=== PATIENT | male | born 1955 | race Caucasian/White ===

== ENCOUNTER 2018-05-02 21:18 | Emergency (ER) | payer MEDICAID ==
[2018-05-02 21:56] LABS: BASO # 0.1 K/uL (0.0-0.2); BASO % 1.5 % (0.0-2.0); EOS # 0.2 K/uL (0.0-0.7); EOS % 2.8 % (0.0-4.0); HEMOGLOBIN 14.5 g/dL (12.0-18.0); LYMPH # 1.8 K/uL (1.0-4.3); LYMPH % 26.2 % (20.0-40.0); MEAN CELL VOLUME 97.6 fl (80.0-94.0); MEAN CORPUSCULAR HEMOGLOBIN 33.8 pg (27.0-31.0); MEAN CORPUSCULAR HGB CONC 34.7 g/dL (33.0-37.0); MEAN PLATELET VOLUME 8.3 fl (7.2-11.7); MONO # 0.4 K/uL (0.0-0.8); MONO % 6.5 % (0.0-10.0); NEUT # 4.3 K/uL (1.8-7.0); RBC 4.28 Mil/uL (4.40-5.90); RED CELL DISTRIBUTION WIDTH 12.8 % (11.5-14.5); WHITE BLOOD COUNT 6.9 K/uL (4.8-10.8)
--- NOTE | 2018-05-02 21:57 | ED PDOC ---
HPI: Trauma/Fall - HPI Time Seen by Provider: 05/02/18 21:32 Chief Complaint (Nursing): Weakness/Neurological Deficit Chief Complaint (Provider): Weakness/Neurological Deficit History Per: Patient History/Exam Limitations: no limitations Onset/Duration Of Symptoms: Hrs Additional Complaint(s): 62 y/o male with a PMHx of chronic leg weakness secondary to a herniated disk in his lumbar spine, HTN, BPH and TIA brought to the ED for evaluation of fall. Patient states he was walking on the sidewalk when he tripped and fell. Patient reports this is not unusual secondary to weakness. Patient additionally reports of chronic generalized weakness as well as a left facial droop. Patient states he was recently evaluated at [facility] where a CT and lab work was performed. In addition, Patient states he has been homeless since April 10. Denies loss of consciousness and new weakness. PMD: Non [facility] Provider (Dr. Suraj Calvin in [place], [place]) - Fall Fall:Prior To Injury: Tripped Past Medical History Reviewed: Historical Data, Nursing Documentation, Vital Signs Vital Signs: Last Vital Signs Temp 98.3 F 05/02/18 21:18 Pulse 76 05/02/18 21:18 Resp 17 05/02/18 21:18 BP 162/117 H 05/02/18 21:18 Pulse Ox 100 05/02/18 21:18 - Medical History PMH: Benign Prostatic Hyperplasia, HTN, TIA, Chronic Pain (Leg swelling secondary to herniated disk in his lumbar spine) - Surgical History Surgical History: No Surg Hx - Family History Family History: States: Hypertension - Social History Current smoker - smoking cessation education provided: No Drugs: Denies - Allergies Allergies/Adverse Reactions: Allergies Allergy/AdvReac Type Severity Reaction Status Date / Time No Known Allergies Allergy Verified 05/02/18 21:34 Review of Systems ROS Statement: Except As Marked, All Systems Reviewed And Found Negative (as per HPI) Constitutional: Positive for: Weakness, Other (Fall) Neurological: Negative for: Other (loss of consciousness) Physical Exam - Reviewed Nursing Documentation Reviewed: Yes Vital Signs Reviewed: Yes - Physical Exam Appears: Positive for: No Acute Distress (but tired and slightly malodorous) Head Exam: Positive for: ATRAUMATIC, NORMOCEPHALIC Skin: Positive for: Warm, Dry Eye Exam: Positive for: EOMI, PERRL ENT: Positive for: Normal ENT Inspection, Pharynx Is (clear), Other (Dry Mucous Membranes) Neck: Positive for: Painless ROM, Supple Cardiovascular/Chest: Positive for: Regular Rate, Rhythm. Negative for: Murmur Respiratory: Positive for: Normal Breath Sounds. Negative for: Respiratory Distress Gastrointestinal/Abdominal: Positive for: Soft. Negative for: Tenderness Back: Positive for: Decreased ROM Extremity: Positive for: Other (4/5 strength in hip flexors bilaterally. 5/5 plantar and dorsal flexion bilaterally). Negative for: Pedal Edema Lymphatic: Negative for: Adenopathy Neurologic/Psych: Positive for: Alert, Oriented (x3), Facial Droop (left sided) , Other (slightly slurred speech) - Laboratory Results Result Diagrams: 05/02/18 21:49 05/02/18 22:51 - ECG O2 Sat by Pulse Oximetry: 100 (RA) Pulse Ox Interpretation: Normal Medical Decision Making Medical Decision Making: Time: 2148 Impression: Fall and Generalized Weakness Plan: -- Type and Screen -- CT Head w/o Contrast -- EKG -- Alcohol Serum -- Ammonia -- CMP -- Lact Acid, Plasma -- Magnesium -- Phosphorus -- Thyroid Stimulating Hormone -- ED Urine Dipstick -- CBC with differentials -- PTT -- Prothrombin Time -- Glucose, POC -- Tar Heater Operator -- IV Insertion Time: [address] RESULTS FINDINGS: There is moderate brain parenchymal atrophy. There is no midline shift or mass effect. There is no evidence of an acute ischemic stroke. There is no acute intracranial hemorrhage. There is slight calcification of the arteries. The skull shows no evidence of injury or other acute pathologic processes. There is slight mucosal thickening in the paranasal sinuses. IMPRESSION: There is no acute intracranial abnormality. Thank you for allowing us to participate in the care of your patient. Dictated and Authenticated by: Marcell Fields MD 05/02/2018 10:30 PM Eastern Time ([place] & [place]) Labs stable c/w previous BP normalized while in ER DW pt findings. Pt stable for discharge and emphasized need for followup. Scribe Attestation: Documented by Dwaine Ledesma acting as a scribe for Dr. Kiya Aggarwal. Provider Scribe Attestation: All medical record entries made by the Scribe were at my direction and personally dictated by me. I have reviewed the chart and agree that the record accurately reflects my personal performance of the history, physical exam, medical decision making, and the department course for this patient. I have also personally directed, reviewed, and agree with the discharge instructions and disposition. Disposition - Clinical Impression Clinical Impression: Generalized muscle weakness, Fall Counseled Patient/Family Regarding: Studies Performed, Diagnosis, Need For Followup - Disposition Referrals: [facility] [Outside] Disposition Time: 23:45 Condition: STABLE Additional Instructions: TAKE YOUR REGULAR MEDICATIONS PRESCRIBED. FOLLOW UP AT CLINIC SOON POSSIBLE. Instructions: Preventing Falls, Generalized Weakness (DC) Forms: [employer] ([place])
[2018-05-02 22:01] LABS: PROTHROMBIN TIME 11.2 Seconds (9.8-13.1)
[2018-05-02 22:04] LABS: PARTIAL THROMBOPLASTIN TIME 31.5 Seconds (25.6-37.1)
[2018-05-02 23:25] LABS: CALCIUM 9.7 mg/dL (8.4-10.2); GFR NON-AFRICAN AMERICAN > 60
[2018-05-02 23:35] LABS: ALB/GLOB RATIO 1.5 (1.0-2.1); ALBUMIN 4.6 g/dL (3.5-5.0); ALT/SGPT 72 U/L (21-72); AST/SGOT 85 U/L (17-59); BLOOD UREA NITROGEN 14 mg/dl (9-20)
[2018-05-03 01:46] VITALS: BP 153/77; PULSE 89; RESP 20; TEMP 98.2
--- NOTE | 2018-05-03 08:23 | CARD ---
APPROVED REPORT Date of service: 05/02/2018 EKG Measurement Heart [id number] <Conclusion> Normal sinus rhythm Moderate voltage criteria for LVH, may be normal variant Borderline ECG
--- NOTE | 2018-05-03 08:28 | CT ---
Date of service: 05/02/2018 PROCEDURE: CT HEAD WITHOUT CONTRAST. HISTORY: fall COMPARISON: None available. TECHNIQUE: Axial computed tomography images were obtained through the head/brain without intravenous contrast. Radiation dose: Total exam DLP = 865.24 mGy-cm. This CT exam was performed using one or more of the following dose reduction techniques: Automated exposure control, adjustment of the mA and/or kV according to patient size, and/or use of iterative reconstruction technique. FINDINGS: HEMORRHAGE: No intracranial hemorrhage. BRAIN: No mass effect or edema. No atrophy or chronic microvascular ischemic changes. VENTRICLES: Unremarkable. No hydrocephalus. CALVARIUM: Unremarkable. PARANASAL SINUSES: Unremarkable as visualized. No significant inflammatory changes. MASTOID AIR CELLS: Unremarkable as visualized. No inflammatory changes. OTHER FINDINGS: None. IMPRESSION: Normal CT of the Head. No acute intracranial hemorrhage. The preliminary findings for this examination were reported by [facility] at 10:30 p.m. on 05/02/2018. There is concurrence of this report with the preliminary findings.
[2018-05-03 22:49] VITALS: O2SAT 100
== END 2018-05-03 02:18 | disposition home or self-care (01) ==
LOC: H.ER 21:18
DX: M62.81 Muscle weakness (generalized) (principal); W01.0XXA Fall on same level from slipping, tripping and stumbling without subsequent striking against object, initial encounter; Y92.480 Sidewalk as the place of occurrence of the external cause; G89.29 Other chronic pain; I10 Essential (primary) hypertension; R29.810 Facial weakness; Z86.73 Personal history of transient ischemic attack (TIA), and cerebral infarction without residual deficits
CPT/HCPCS: 70450; 80053; 80320; 82140; 82948; 83605; 83735; 84100; 84443; 85025; 85610; 85730; 86850; 86900; 93005; 96374; 99284; J1885

== ENCOUNTER 2018-05-19 21:53 | Emergency (ER) | payer MEDICAID ==
[2018-05-19 22:00] VITALS: PULSE 68; TEMP 98.1; O2SAT 98
--- NOTE | 2018-05-19 22:16 | ED PDOC ---
Lower Extremity Pain/Injury Time Seen by Provider: 05/19/18 22:14 Chief Complaint (Nursing): Lower Extremity Problem/Injury Chief Complaint (Provider): WEAKNESS History Per: Patient (62 Y/O MALE HOMELESS BROUGHT TO ED FOR LEGS GIVING OUT FROM UNDER HIM. PATIENT STATES HOMELESS FCI WAS FULL AND HE WAS TRYING TO GET OUT OF RAIN WHEN HE FELT LEGS GIVE OUT FROM UNDER HIM. STATES THIS HAPPENS FREQUENTLY BUT UNSURE WHY. DID NOT HIT HEAD. NOTES RIGHT SIDED PAIN ALONG BODY. WAS SEEN [address]/EKG/LABWORK EVALUATION FOR COMPLAINT. PLANS TO F/U WITH HIS PMD FOR EVALUATION.) Past Medical History Reviewed: Historical Data, Nursing Documentation, Vital Signs Vital Signs: Last Vital Signs Temp 98.1 F 05/19/18 21:56 Pulse 68 05/19/18 21:56 Resp 18 05/19/18 21:56 BP 100/61 05/19/18 21:56 Pulse Ox 98 05/19/18 21:56 - Medical History PMH: Benign Prostatic Hyperplasia, HTN, TIA, Chronic Pain (Leg swelling secondary to herniated disk in his lumbar spine) - Family History Family History: States: Hypertension - Allergies Allergies/Adverse Reactions: Allergies Allergy/AdvReac Type Severity Reaction Status Date / Time No Known Allergies Allergy Verified 05/17/18 22:26 Review of Systems ROS Statement: Except As Marked, All Systems Reviewed And Found Negative Physical Exam - Reviewed Nursing Documentation Reviewed: Yes Vital Signs Reviewed: Yes - Physical Exam Appears: Positive for: Well, Non-toxic, No Acute Distress Head Exam: Positive for: ATRAUMATIC, NORMAL INSPECTION, NORMOCEPHALIC Skin: Positive for: Normal Color, Warm, DRY Eye Exam: Positive for: EOMI, Normal appearance, PERRL ENT: Positive for: Normal ENT Inspection Neck: Positive for: Normal, Painless ROM Cardiovascular/Chest: Positive for: Regular Rate, Rhythm Respiratory: Positive for: CNT, Normal Breath Sounds Gastrointestinal/Abdominal: Positive for: Normal Exam, Soft Back: Positive for: Normal Inspection Extremity: Positive for: Normal ROM Neurologic/Psych: Positive for: Alert, Oriented, Other (5/5 STRENGTH UPPER AND LOWER.) - ECG O2 Sat by Pulse Oximetry: 98 - Progress ED Course And Treament: ACCUCHECK 120 PATIENT GIVEN MEAL IN ED. NOTED COMFORTABLE IN ED, WATCHING TV AND SINGING ALONG TO COMMERCIALS Disposition - Clinical Impression Clinical Impression: Falls - Patient ED Disposition Is Patient to be Admitted: No - Disposition Disposition: Routine/Home Disposition Time: 22:47 Condition: FAIR Instructions: Preventing Falls
[2018-05-19 22:55] VITALS: BP 105/63; RESP 16
== END 2018-05-19 23:08 | disposition home or self-care (01) ==
LOC: H.ER 21:53
DX: Z91.81 History of falling (principal); G89.29 Other chronic pain; I10 Essential (primary) hypertension; Z86.73 Personal history of transient ischemic attack (TIA), and cerebral infarction without residual deficits

== ENCOUNTER 2018-05-21 06:02 | Emergency (ER) | payer MEDICAID ==
[2018-05-21 06:19] VITALS: BMI 20.4
[2018-05-21 06:22] VITALS: TEMP 98.8
--- NOTE | 2018-05-21 06:54 | ED PDOC ---
HPI: General Adult Time Seen by Provider: 05/21/18 06:35 Chief Complaint (Nursing): Medical Clearance Chief Complaint (Provider): Homelessness History Per: Patient History/Exam Limitations: no limitations Additional Complaint(s): 62 year old male presents to the ED with no medical complaints. Patient reports he doesn't like his nursing home and considers just a place to spend time. He is looking for another nursing home and has no psych or medical complaints. PMD: none provided Past Medical History Reviewed: Historical Data, Nursing Documentation, Vital Signs Vital Signs: Last Vital Signs Temp 98.8 F 05/21/18 06:19 Pulse 73 05/21/18 10:12 Resp 18 05/21/18 10:12 BP 109/66 05/21/18 10:12 Pulse Ox 98 05/25/18 15:23 - Medical History PMH: Back Problems, Benign Prostatic Hyperplasia, HTN, TIA, Chronic Pain (Leg swelling secondary to herniated disk in his lumbar spine) - Surgical History Surgical History: Back Surgery - Family History Family History: States: Hypertension - Allergies Allergies/Adverse Reactions: Allergies Allergy/AdvReac Type Severity Reaction Status Date / Time No Known Allergies Allergy Verified 05/24/18 22:31 Review of Systems ROS Statement: Except As Marked, All Systems Reviewed And Found Negative Physical Exam - Reviewed Nursing Documentation Reviewed: Yes Vital Signs Reviewed: Yes - Physical Exam Appears: Positive for: Non-toxic, No Acute Distress Head Exam: Positive for: ATRAUMATIC, NORMOCEPHALIC Skin: Positive for: Normal Color, Warm, Dry Eye Exam: Positive for: Normal appearance Neck: Positive for: Normal, Painless ROM Cardiovascular/Chest: Positive for: Regular Rate, Rhythm. Negative for: Murmur Respiratory: Positive for: Normal Breath Sounds. Negative for: Wheezing, Respiratory Distress Extremity: Positive for: Normal ROM Neurologic/Psych: Positive for: Alert, Oriented. Negative for: Motor/Sensory Deficits - ECG O2 Sat by Pulse Oximetry: 98 (RA) Pulse Ox Interpretation: Normal Medical Decision Making Medical Decision Making: Initial Impression: Homelessness Initial Plan: Patient will be referred to nursing home. Scribe Attestation: Documented by Todd Morfin acting as a scribe for Poncho Garcia MD. Provider Scribe Attestation: All medical record entries made by the Scribe were at my direction and personally dictated by me. I have reviewed the chart and agree that the record accurately reflects my personal performance of the history, physical exam, medical decision making, and the department course for this patient. I have also personally directed, reviewed, and agree with the discharge instructions and disposition. Disposition - Clinical Impression Clinical Impression: Episode of generalized weakness, Malingering, Homelessness - Patient ED Disposition Is Patient to be Admitted: Transfer of Care Counseled Patient/Family Regarding: Diagnosis - Disposition Referrals: [facility] [Outside] Disposition: Transfer of Care Disposition Time: 07:00 Condition: STABLE Instructions: Fatigue, General (DC), Weakness (ED) Patient Signed Over To: Akash Chisholm
--- NOTE | 2018-05-21 07:47 | ED PDOC ---
- ECG O2 Sat by Pulse Oximetry: 98 (RA) Disposition - Clinical Impression Clinical Impression: Episode of generalized weakness - POA Present On Arrival: None - Disposition Referrals: [facility] [Outside] Disposition: Routine/Home Disposition Time: 07:46 Instructions: General (DC), Weakness (ED), Fatigue Forms: [employer] (Tristanian)
[2018-05-21 09:38] VITALS: BP 109/66; PULSE 73; RESP 18
[2018-05-25 15:23] VITALS: O2SAT 98
== END 2018-05-21 10:10 | disposition home or self-care (01) ==
LOC: H.ER 06:02
DX: M62.81 Muscle weakness (generalized) (principal); Z59.0 Homelessness; G89.29 Other chronic pain; I10 Essential (primary) hypertension; N40.0 Benign prostatic hyperplasia without lower urinary tract symptoms; Z86.73 Personal history of transient ischemic attack (TIA), and cerebral infarction without residual deficits

== ENCOUNTER 2018-05-25 06:34 | Emergency (ER) | payer MEDICAID ==
[2018-05-25 06:34] VITALS: BMI 20.4
[2018-05-25 06:46] VITALS: PULSE 86; RESP 18; TEMP 98.2
--- NOTE | 2018-05-25 07:37 | ED PDOC ---
- ECG O2 Sat by Pulse Oximetry: 98 Disposition - Disposition
--- NOTE | 2018-05-25 07:46 | ED PDOC ---
- ECG O2 Sat by Pulse Oximetry: 98 <Alexa Patricia - Last Filed: 06/13/18 13:39> Disposition - POA Present On Arrival: None - Disposition Disposition: Transfer of Care Disposition Time: 08:30 <Alexa Patricia - Last Filed: 06/13/18 13:39> - POA Present On Arrival: None - Disposition Disposition: Routine/Home <Akash Chisholm - Last Filed: 06/15/18 12:34> - Clinical Impression Clinical Impression: Fall, Well adult exam - Disposition Referrals: [facility] [Outside] Condition: FAIR Instructions: Preventing Falls Forms: [employer] (Faroese) Progress Note <Alexa Patricia - Last Filed: 06/13/18 13:39> <Akash Chisholm - Last Filed: 06/15/18 12:34> - Review of Symptoms Events since last encounter: Pt is a 62 yo homeless M with a PMH of HTN, slipped disc, HLD presents to the ED due to weakness and dizziness. Pt was walking in [place] this morning at 4:30am and he felt confused dizzy and weak and this caused him to fall. Patient was on his way back to the [facility] when this episode occurred. Patient states he uses a walker and a cane usually. Patient keeps repeating that he wants breakfast. Denies any slurred speech, headache, blurry vision, numbness, tingling, nausea, vomiting, diarrhea. PMH: HTN, Slipped Disc, HLD Meds: Losartan 100mg, Flexeril, Statin, Atenolol 50mg Allergies: NKDA SH: Denies smoking, alcohol, or drug use FH: HTN Hosp: None Surghx: Sinus surgery (12x), Laminectomy, Appendectomy-2010 (KaryYoselyn arvizuekah) Pt is a 62 yo homeless M with a PMH of HTN, slipped disc, HLD presents to the ED due to weakness and dizziness. Pt was walking in [place] this morning at 4:30am and he felt confused dizzy and weak and this caused him to fall. Patient was on [facility] way [facility] when this episode occurred. Patient states he uses a walker and a cane usually. Patient keeps repeating that he wants breakfast. Denies any slurred speech, headache, blurry vision, numbness, tingling, nausea, vomiting, diarrhea. PMH: HTN, Slipped Disc, HLD Meds: Losartan 100mg, Flexeril, Statin, Atenolol 50mg Allergies: NKDA SH: Denies smoking, alcohol, or drug use FH: HTN Hosp: None Surghx: Sinus surgery (12x), Laminectomy, Appendectomy-2010 (Akash Chisholm) Physical Exam - Reviewed Nursing Documentation Reviewed: Yes Vital Signs Reviewed: Yes - Physical Exam Appears: Positive for: Non-toxic, No Acute Distress Head Exam: Positive for: ATRAUMATIC, NORMAL INSPECTION, NORMOCEPHALIC Skin: Positive for: Normal Color, Warm, DRY Eye Exam: Positive for: EOMI, Normal appearance, PERRL ENT: Positive for: Normal ENT Inspection Neck: Positive for: Normal, Painless ROM Cardiovascular/Chest: Positive for: Regular Rate, Rhythm Respiratory: Positive for: CNT, Normal Breath Sounds Gastrointestinal/Abdominal: Positive for: Normal Exam, Soft Back: Positive for: Normal Inspection Extremity: Positive for: Normal ROM Neurologic/Psych: Positive for: Alert, Oriented <Akash Chisholm - Last Filed: 06/15/18 12:34> Review of Systems ROS Statement: Except As Marked, All Systems Reviewed And Found Negative Neurological: Positive for: Dizziness <Akash Chisholm - Last Filed: 06/15/18 12:34>
[2018-05-25 09:23] VITALS: BP 127/75
[2018-05-25 09:24] VITALS: O2SAT 98
== END 2018-05-25 09:22 | disposition home or self-care (01) ==
LOC: H.ER 06:34
DX: Z00.00 Encounter for general adult medical examination without abnormal findings (principal); Z59.0 Homelessness; W01.0XXA Fall on same level from slipping, tripping and stumbling without subsequent striking against object, initial encounter

== ENCOUNTER 2018-05-29 20:29 | Emergency (ER) | payer MEDICAID ==
[2018-05-29 20:29] VITALS: BMI 20.4
[2018-05-29 20:36] VITALS: BP 128/62; PULSE 92; RESP 20; TEMP 99.2; O2SAT 98
--- NOTE | 2018-05-29 21:37 | ED PDOC ---
Lower Extremity Pain/Injury Time Seen by Provider: 05/29/18 20:46 Chief Complaint (Nursing): Lower Extremity Problem/Injury Chief Complaint (Provider): left lower back and hip pain History Per: Patient History/Exam Limitations: no limitations Onset/Duration Of Symptoms: Hrs (today) Current Symptoms Are (Timing): Still Present Additional Complaint(s): Jose Swanson is a 62 year old male, with a past medical history of back problems, who was brought to the emergency department by EMS complaining of left lower back and hip pain s/p fall onset today. Patient states he was walking in the park when he fell landing on his left side. He reports hitting his head and has had a mild headache since. Patient was able to ambulate at the time of the incident. He denies any LOC or other injuries. No further medical complaints. PMD: none provided. - Hip Description Of Injury: Fell Past Medical History Reviewed: Historical Data, Nursing Documentation, Vital Signs Vital Signs: Last Vital Signs Temp 99.2 F 05/29/18 20:35 Pulse 92 H 05/29/18 20:35 Resp 20 05/29/18 20:35 BP 128/62 05/29/18 20:35 Pulse Ox 98 05/29/18 20:35 - Medical History PMH: Back Problems, Benign Prostatic Hyperplasia, HTN, TIA, Chronic Pain (Leg swelling secondary to herniated disk in his lumbar spine) - Surgical History Surgical History: Back Surgery - Family History Family History: States: Hypertension - Allergies Allergies/Adverse Reactions: Allergies Allergy/AdvReac Type Severity Reaction Status Date / Time No Known Allergies Allergy Verified 05/29/18 20:38 Review of Systems ROS Statement: Except As Marked, All Systems Reviewed And Found Negative Musculoskeletal: Positive for: Back Pain (left lower), Other (hip pain) Neurological: Positive for: Headache (mild) Physical Exam - Reviewed Nursing Documentation Reviewed: Yes Vital Signs Reviewed: Yes - Physical Exam Appears: Positive for: No Acute Distress Head Exam: Positive for: NORMOCEPHALIC. Negative for: ATRAUMATIC (Mild tenderness to left parietal scalp) Skin: Positive for: Normal Color, Warm, Dry Eye Exam: Positive for: Normal appearance, EOMI, PERRL Neck: Positive for: Painless ROM, Supple Cardiovascular/Chest: Positive for: Regular Rate, Rhythm. Negative for: Murmur Respiratory: Positive for: Normal Breath Sounds. Negative for: Respiratory Distress Gastrointestinal/Abdominal: Positive for: Normal Exam, Soft. Negative for: Tenderness, Other (ecchymosis) Back: Positive for: Other (mild left paralumbar tenderness.) Extremity: Positive for: Normal ROM (upper and lower extremities). Negative for : Tenderness, Deformity, Swelling Neurologic/Psych: Positive for: Alert, Oriented, Gait (steady. able to ambulate in the ED) - ECG O2 Sat by Pulse Oximetry: 98 (RA) Pulse Ox Interpretation: Normal Medical Decision Making Medical Decision Making: Time: 20:46 Initial impression: Fall injuries Initial Plan: --Head w/o contrast [CT] --LS Spine AP/LAT [RAD] --Hip left [Hip min 4v W/ PELVIS LT [RAD] --Reevaluation X-rays reviewed: L/s Spine: no acute fx, mod DJD; as read by carmelo Hip: no acute fx/dislocation, moderate DJD; as read by me. CT head: no acute intracranial injury, as per [facility] EXAM: CT Head Without Intravenous Contrast EXAM DATE/TIME: 05/29/2018 9:31 PM CLINICAL HISTORY: 62 years old, male; Injury or trauma; Fall; Initial encounter; Concussion / head injury; Without loss of consciousness; Injury details: Fell while walking in the park TECHNIQUE: Axial computed tomography images of the head/brain without intravenous contrast. All CT scans at this facility use at least one of these dose optimization techniques: automated exposure control; mA and/or kV adjustment per patient size (includes targeted exams where dose is matched to clinical indication); or iterative reconstruction. Coronal and sagittal reformatted images were created and reviewed. COMPARISON: CT HEAD W/O CONTRAST 05/17/2018 11:29 PM FINDINGS: Brain: There is mild diffuse cerebral atrophy present, consistent with this patient's age. No acute infarct or hemorrhage. Ventricles: The ventricular system demonstrates mild diffuse compensatory enlargement. Bones/joints: Normal. No acute fracture. Sinuses: Postsurgical changes in the paranasal sinuses. Mastoid air cells: Normal as visualized. No mastoid effusion. Soft tissues: Normal. IMPRESSION: No acute intracranial abnormality. Pt. well appearing, ambulating with his walker, neuro intact. Scribe Attestation: Documented by Toney Lopez, acting as a scribe for Rae Jane PA-C Provider Scribe Attestation: All medical record entries made by the Scribe were at my direction and personally dictated by me. I have reviewed the chart and agree that the record accurately reflects my personal performance of the history, physical exam, medical decision making, and the department course for this patient. I have also personally directed, reviewed, and agree with the discharge instructions and disposition. Disposition - Clinical Impression Clinical Impression: Hip pain, Head injury - Patient ED Disposition Is Patient to be Admitted: No Doctor Will See Patient In The: Office Counseled Patient/Family Regarding: Studies Performed, Diagnosis - Disposition Disposition: Routine/Home Disposition Time: 23:01 Condition: IMPROVED Instructions: Closed Head Injury (DC), Hip Pain (DC) Forms: [employer] ([place]ive[place])
--- NOTE | 2018-05-30 08:36 | CT ---
Date of service: 05/29/2018 PROCEDURE: CT HEAD WITHOUT CONTRAST. HISTORY: fall COMPARISON: 05/17/2018 TECHNIQUE: Axial computed tomography images were obtained through the head/brain without intravenous contrast. Radiation dose: Total exam DLP = 875.76 mGy-cm. This CT exam was performed using one or more of the following dose reduction techniques: Automated exposure control, adjustment of the mA and/or kV according to patient size, and/or use of iterative reconstruction technique. FINDINGS: HEMORRHAGE: No intracranial hemorrhage. BRAIN: No mass effect or edema. No atrophy or chronic microvascular ischemic changes. VENTRICLES: Unremarkable. No hydrocephalus. CALVARIUM: Unremarkable. PARANASAL SINUSES: Postoperative changes in maxillary antra. Mild chronic ethmoid sinusitis. Mild sphenoid sinusitis. MASTOID AIR CELLS: Unremarkable as visualized. No inflammatory changes. OTHER FINDINGS: None. IMPRESSION: No intracranial hemorrhage. Chronic paranasal sinusitis and postoperative changes of the maxillary sinuses. Otherwise unremarkable. The preliminary findings for this examination were reported by [facility] at 10:45 p.m. on 05/29/2018. There is concurrence of this report with the preliminary findings.
--- NOTE | 2018-05-30 09:42 | RAD ---
PROCEDURE: Left Hip X-ray Radiographs. HISTORY: hip pain s/p fall COMPARISON: None. FINDINGS: BONES: Normal. No fracture. JOINTS: Normal. SOFT TISSUES: Normal. OTHER FINDINGS: None. IMPRESSION: Normal left hip radiographs.
--- NOTE | 2018-05-30 09:42 | RAD ---
Date of service: 05/29/2018 PROCEDURE: Radiographs of the Lumbar Spine. HISTORY: fall COMPARISON: No prior. FINDINGS: BONES: The vertebral bodies are maintained in height. Normal alignment is maintained. The transverse processes and posterior elements are intact. DISC SPACES: There is narrowing of the L4-5 and L5-S1 disc spaces consistent with degenerative disc disease. OTHER FINDINGS: None. IMPRESSION: Degenerative disc disease L4-5 and L5-S1. No acute fracture.
== END 2018-05-29 23:28 | disposition home or self-care (01) ==
LOC: H.ER 20:29
DX: S09.90XA Unspecified injury of head, initial encounter (principal); M25.552 Pain in left hip; G89.29 Other chronic pain; I10 Essential (primary) hypertension; N40.0 Benign prostatic hyperplasia without lower urinary tract symptoms; Z86.73 Personal history of transient ischemic attack (TIA), and cerebral infarction without residual deficits; W01.0XXA Fall on same level from slipping, tripping and stumbling without subsequent striking against object, initial encounter; Y92.830 Public park as the place of occurrence of the external cause; Y93.01 Activity, walking, marching and hiking

== ENCOUNTER 2018-06-03 03:50 | Emergency (ER) | payer MEDICAID ==
[2018-06-03 03:51] VITALS: BMI 25.8
[2018-06-03 04:00] VITALS: BP 131/94; PULSE 100; RESP 18; TEMP 97.9; O2SAT 100
--- NOTE | 2018-06-03 04:26 | ED PDOC ---
HPI: General Adult Time Seen by Provider: 06/03/18 04:11 Chief Complaint (Nursing): Medical Clearance Chief Complaint (Provider): Medical Clearance History Per: Patient History/Exam Limitations: no limitations Recently: Seen In ED Additional Complaint(s): 62 year old homeless male well known to the ED and this provider for multiple visits presents to the ED requesting food and a bed to sleep in as well as complaints of sinus pain. Patient was seen here yesterday for sinus pain and given a prescription for Augmentin. Offers no other medical complaints. PMD: none provided Past Medical History Reviewed: Historical Data, Nursing Documentation, Vital Signs Vital Signs: Last Vital Signs Temp 97.9 F 06/03/18 03:55 Pulse 100 H 06/03/18 03:55 Resp 18 06/03/18 03:55 BP 131/94 H 06/03/18 03:55 Pulse Ox 100 06/03/18 04:33 - Medical History PMH: Back Problems, Benign Prostatic Hyperplasia, HTN, TIA, Chronic Pain (Leg swelling secondary to herniated disk in his lumbar spine) - Surgical History Surgical History: Back Surgery - Family History Family History: States: Hypertension - Home Medications Home Medications: Ambulatory Orders Medication Instructions Recorded Amoxicillin/Clavulanate [Augmentin 1 tab PO BID #14 tab 06/02/18 875 MG-125 MG] - Allergies Allergies/Adverse Reactions: Allergies Allergy/AdvReac Type Severity Reaction Status Date / Time No Known Allergies Allergy Verified 06/03/18 04:00 Review of Systems ROS Statement: Except As Marked, All Systems Reviewed And Found Negative ENT: Positive for: Other (sinus pain) Physical Exam - Reviewed Nursing Documentation Reviewed: Yes Vital Signs Reviewed: Yes - Physical Exam Appears: Positive for: Non-toxic, No Acute Distress (disheveled) Head Exam: Positive for: ATRAUMATIC, NORMAL INSPECTION, NORMOCEPHALIC Skin: Positive for: Normal Color, Warm, Dry Eye Exam: Positive for: EOMI, Normal appearance, PERRL Extremity: Positive for: Normal ROM (x 4; moving extremities normally) Neurologic/Psych: Positive for: Alert, Oriented (x 3). Negative for: Motor/ Sensory Deficits - ECG O2 Sat by Pulse Oximetry: 100 (RA) Pulse Ox Interpretation: Normal - Progress Re-evaluation Time: 06:30 Condition: Re-examined, Improved Medical Decision Making Medical Decision Making: Patient is stable and will be given a bed in the ED. Scribe Attestation: Documented by Tamra Trivedi acting as a scribe for Poncho Garcia MD Provider Scribe Attestation: All medical record entries made by the Scribe were at my direction and personally dictated by me. I have reviewed the chart and agree that the record accurately reflects my personal performance of the history, physical exam, medical decision making, and the department course for this patient. I have also personally directed, reviewed, and agree with the discharge instructions and disposition. Disposition - Clinical Impression Clinical Impression: Sinusitis, Homelessness - Patient ED Disposition Is Patient to be Admitted: No Doctor Will See Patient In The: Office Counseled Patient/Family Regarding: Studies Performed, Diagnosis, Need For Followup - Disposition Referrals: [facility] [Outside] Disposition: Routine/Home Disposition Time: 06:30 Condition: GOOD Additional Instructions: TAMARA MEDLEY, thank you for letting us take care of you today. Your provider was Poncho Garcia MD and you were treated for WEAKNESS. The emergency medical care you received today was directed at your acute symptoms. If you were prescribed any medication, please fill it and take as directed. It may take several days for your symptoms to resolve. Return to the Emergency Department if your symptoms worsen, do not improve, or if you have any other problems. Please contact your doctor or call one of the physicians/clinics you have been referred to that are listed on the Patient Visit Information form that is included in your discharge packet. Bring any paperwork you were given at discharge with you along with any medications you are taking to your follow up visit. Our treatment cannot replace ongoing medical care by a primary care provider outside of the emergency department. Thank you for allowing the [facility] team to be part of your care today. If you had an X-Ray or CT scan: A Radiologist will review the ED reading if any change in treatment is needed we will contact you. If you had a blood, urine, or wound culture: It will take several days for the results, if any change in treatment is needed we will contact you. If you had an STI test: It will take 48 hours for the results. Please call after 1 week if you have not heard back. Instructions: Sinusitis, Adult (DC)
== END 2018-06-03 06:51 | disposition home or self-care (01) ==
LOC: H.ER 03:50
DX: J32.9 Chronic sinusitis, unspecified (principal); Z59.0 Homelessness; G89.29 Other chronic pain; I10 Essential (primary) hypertension; Z86.73 Personal history of transient ischemic attack (TIA), and cerebral infarction without residual deficits; N40.0 Benign prostatic hyperplasia without lower urinary tract symptoms

== ENCOUNTER 2018-06-04 07:13 | Emergency (ER) | payer MEDICAID ==
[2018-06-04 07:13] VITALS: BMI 25.8
[2018-06-04 07:37] VITALS: RESP 18
[2018-06-04 08:27] LABS: BASO # 0.1 K/uL (0.0-0.2); BASO % 0.8 % (0.0-2.0); EOS # 0.2 K/uL (0.0-0.7); EOS % 1.9 % (0.0-4.0); HEMOGLOBIN 15.6 g/dL (12.0-18.0); LYMPH # 1.8 K/uL (1.0-4.3); LYMPH % 19.7 % (20.0-40.0); MEAN CELL VOLUME 93.8 fl (80.0-94.0); MEAN CORPUSCULAR HEMOGLOBIN 33.1 pg (27.0-31.0); MEAN CORPUSCULAR HGB CONC 35.3 g/dL (33.0-37.0); MEAN PLATELET VOLUME 8.8 fl (7.2-11.7); MONO # 0.5 K/uL (0.0-0.8); MONO % 5.9 % (0.0-10.0); NEUT # 6.4 K/uL (1.8-7.0); NEUT % 71.7 % (50.0-75.0); RBC 4.71 Mil/uL (4.40-5.90); RED CELL DISTRIBUTION WIDTH 12.3 % (11.5-14.5)
[2018-06-04 09:26] LABS: ALB/GLOB RATIO 1.2 (1.0-2.1); ALBUMIN 4.3 g/dL (3.5-5.0); ALT/SGPT 62 U/L (21-72); AST/SGOT 82 U/L (17-59); BLOOD UREA NITROGEN 21 mg/dl (9-20); GFR NON-AFRICAN AMERICAN > 60
--- NOTE | 2018-06-04 14:09 | RAD ---
Date of service: 06/04/2018 HISTORY: Weakness COMPARISON: Chest radiograph dated 05/17/2018. FINDINGS: LUNGS: Right basilar scarring. No active pulmonary disease. PLEURA: Stable elevation of the right hemidiaphragm. No significant pleural effusion identified, no pneumothorax apparent. CARDIOVASCULAR: Cardiomediastinal silhouette stably enlarged. OSSEOUS STRUCTURES: Unchanged. VISUALIZED UPPER ABDOMEN: Normal. OTHER FINDINGS: None. IMPRESSION: No active disease.
[2018-06-04 15:40] VITALS: BP 132/74; PULSE 82; TEMP 98.6; O2SAT 97
--- NOTE | 2018-06-04 16:34 | ED PDOC ---
HPI: General Adult Time Seen by Provider: 06/04/18 07:37 Chief Complaint (Nursing): Weakness/Neurological Deficit Chief Complaint (Provider): generalized weakness History Per: Patient, Other (old records) Onset/Duration Of Symptoms: Days (7+), Intermittent Episodes, Gradual Current Symptoms Are (Timing): Still Present Severity: Mild Additional History Per: Prior Records Past Medical History Vital Signs: Last Vital Signs Temp 98.6 F 06/04/18 13:00 Pulse 82 06/04/18 13:00 Resp 18 06/04/18 13:00 BP 132/74 06/04/18 13:00 Pulse Ox 97 06/04/18 13:00 - Medical History PMH: Back Problems, Benign Prostatic Hyperplasia, HTN, TIA, Chronic Pain (Leg swelling secondary to herniated disk in his lumbar spine) - Surgical History Surgical History: Back Surgery - Family History Family History: States: Hypertension - Home Medications Home Medications: Ambulatory Orders Medication Instructions Recorded Amoxicillin/Clavulanate [Augmentin 1 tab PO BID #14 tab 06/02/18 875 MG-125 MG] Azithromycin [Zithromax] 250 mg PO DAILY #6 tab 06/04/18 - Allergies Allergies/Adverse Reactions: Allergies Allergy/AdvReac Type Severity Reaction Status Date / Time No Known Allergies Allergy Verified 06/03/18 04:00 - Laboratory Results Result Diagrams: 06/04/18 08:20 06/04/18 09:00 - ECG O2 Sat by Pulse Oximetry: 97 Disposition - Clinical Impression Clinical Impression: Generalized muscle weakness, Sinus infection - Disposition Referrals: FAMILY PROVIDER,NO [Primary Care Provider] - [facility] [Outside] Condition: STABLE Prescriptions: Azithromycin [Zithromax] 250 mg PO DAILY #6 tab Instructions: Generalized Weakness (DC), Weakness (ED) Forms: [employer] (Danish)
== END 2018-06-04 17:45 | disposition home or self-care (01) ==
LOC: H.ER 07:13 → SUPCPDRO 07:13 → H.ER 17:45
DX: M62.81 Muscle weakness (generalized) (principal); J01.90 Acute sinusitis, unspecified

== ENCOUNTER 2018-06-05 09:32 | Emergency (ER) | payer MEDICAID ==
[2018-06-05 09:34] VITALS: BMI 21.7
--- NOTE | 2018-06-05 10:03 | ED PDOC ---
HPI: General Adult Time Seen by Provider: 06/05/18 09:38 Chief Complaint (Nursing): Cough, Cold, Congestion Chief Complaint (Provider): Weakness History Per: Patient History/Exam Limitations: no limitations Onset/Duration Of Symptoms: Days Additional Complaint(s): 62 year old male, with a history of homelessness, hypertension, hypercholesterolemia, presenting for evaluation of weakness ongoing for "days". Patient was seen and evaluated in this ED 06/04/[address] Schroeder for same. Patient workup was negative and patient was discharged from ED. Patient is returning today to speak to a director social welfare and enter a [place] [facility] facility. Patient otherwise denies any chest pain, shortness of breath, fever, chills, headache, nausea, vomiting, diarrhea, abdominal pain, dizziness, and lightheadedness. PMD: None Past Medical History Reviewed: Historical Data, Nursing Documentation, Vital Signs Vital Signs: Last Vital Signs Temp 98.1 F 06/05/18 09:34 Pulse 100 H 06/05/18 09:34 Resp 17 06/05/18 09:34 BP 187/125 H 06/05/18 09:34 Pulse Ox 99 06/05/18 10:11 - Medical History PMH: Back Problems, Benign Prostatic Hyperplasia, HTN, Hyperlipidemia, TIA, Chronic Pain (Leg swelling secondary to herniated disk in his lumbar spine) - Surgical History Surgical History: Back Surgery - Family History Family History: States: Hypertension - Home Medications Home Medications: Ambulatory Orders Medication Instructions Recorded Amoxicillin/Clavulanate [Augmentin 1 tab PO BID #14 tab 06/02/18 875 MG-125 MG] Azithromycin [Zithromax] 250 mg PO DAILY #6 tab 06/04/18 - Allergies Allergies/Adverse Reactions: Allergies Allergy/AdvReac Type Severity Reaction Status Date / Time No Known Allergies Allergy Verified 06/03/18 04:00 Review of Systems ROS Statement: Except As Marked, All Systems Reviewed And Found Negative Constitutional: Positive for: Weakness. Negative for: Fever, Chills Cardiovascular: Negative for: Chest Pain, Light Headedness Respiratory: Negative for: Shortness of Breath Gastrointestinal: Negative for: Nausea, Vomiting, Abdominal Pain, Diarrhea Neurological: Negative for: Dizziness Physical Exam - Reviewed Nursing Documentation Reviewed: Yes Vital Signs Reviewed: Yes - Physical Exam Appears: Positive for: Well, Non-toxic, No Acute Distress Head Exam: Positive for: ATRAUMATIC, NORMAL INSPECTION, NORMOCEPHALIC Skin: Positive for: Normal Color, Warm, DRY Eye Exam: Positive for: EOMI, Normal appearance, PERRL ENT: Positive for: Normal ENT Inspection Neck: Positive for: Normal, Painless ROM, Supple Cardiovascular/Chest: Positive for: Regular Rate, Rhythm. Negative for: Murmur Respiratory: Positive for: Normal Breath Sounds. Negative for: Respiratory Distress Gastrointestinal/Abdominal: Positive for: Normal Exam, Soft. Negative for: Tenderness Back: Positive for: Normal Inspection. Negative for: L CVA Tenderness, R CVA Tenderness, Vertebral Tenderness Extremity: Positive for: Normal ROM. 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 Negative for: Motor/Sensory Deficits, Aphasia, Facial Droop - ECG O2 Sat by Pulse Oximetry: 99 (RA) Pulse Ox Interpretation: Normal - Progress ED Course And Treament: 1250: Imaging Science Professor saw pt. Does not meet criteria for admit or [place] referral. Advised to stay with sister and to speak with director social welfare at long-term. Pt. aaox3. Tolerated PO. Fu with pcp. Medical Decision Making Medical Decision Makin Plan: -Social work -Glucose -Reevaluation Scribe Attestation: Documented by Hlolis Ambrose, acting as a scribe for Sam Byrd MD. Provider Scribe Attestation: All medical record entries made by the Scribe were at my direction and per sonally dictated by me. I have reviewed the chart and agree that the record accurately reflects my personal performance of the history, physical exam, medical decision making, and the department course for this patient. I have also personally directed, reviewed, and agree with the discharge instructions and disposition. Disposition - Clinical Impression Clinical Impression: Homelessness - Patient ED Disposition Is Patient to be Admitted: No Counseled Patient/Family Regarding: Diagnosis, Need For Followup - Disposition Referrals: [facility] [Outside] Disposition: Routine/Home Disposition Time: 11:11 Condition: STABLE Instructions: Deciding Where to Go for Care
[2018-06-05 13:55] VITALS: RESP 18; TEMP 98
[2018-06-05 13:56] VITALS: BP 152/74; PULSE 89; O2SAT 98
== END 2018-06-05 13:45 | disposition home or self-care (01) ==
LOC: H.ER 09:32
DX: Z59.0 Homelessness (principal)

== ENCOUNTER 2018-06-05 16:07 | Emergency (ER) | payer MEDICAID ==
[2018-06-05 16:08] VITALS: BMI 21.7
[2018-06-05 16:20] VITALS: BP 132/91; RESP 16; TEMP 98; O2SAT 97
--- NOTE | 2018-06-05 16:32 | ED PDOC ---
HPI: General Adult Time Seen by Provider: 06/05/18 16:23 Chief Complaint (Nursing): Psychiatric Evaluation Chief Complaint (Provider): Medical Evaluation History Per: Patient History/Exam Limitations: no limitations Onset/Duration Of Symptoms: Days (today) Additional Complaint(s): 62 year old male presenting for medical evaluation. Patient was seen here earlier today for complaints of weakness and was seen by social work. Wants to be put in a jail. No pain, weakness, headaches, dizziness. No dyspnea. No drugs or etoh. Not suicidal or homicidal. Past Medical History Vital Signs: Last Vital Signs Temp 98.0 F 06/05/18 16:17 Pulse 114 H 06/05/18 16:17 Resp 16 06/05/18 16:17 BP 132/91 H 06/05/18 16:17 Pulse Ox 97 06/05/18 16:17 - Medical History PMH: Back Problems, Benign Prostatic Hyperplasia, HTN, Hyperlipidemia, TIA, Chronic Pain (Leg swelling secondary to herniated disk in his lumbar spine) - Surgical History Surgical History: Back Surgery - Family History Family History: States: Hypertension - Home Medications Home Medications: Ambulatory Orders Medication Instructions Recorded Amoxicillin/Clavulanate [Augmentin 1 tab PO BID #14 tab 06/02/18 875 MG-125 MG] Azithromycin [Zithromax] 250 mg PO DAILY #6 tab 06/04/18 - Allergies Allergies/Adverse Reactions: Allergies Allergy/AdvReac Type Severity Reaction Status Date / Time No Known Allergies Allergy Verified 06/05/18 16:17 Review of Systems ROS Statement: Except As Marked, All Systems Reviewed And Found Negative Constitutional: Negative for: Weakness Physical Exam - Reviewed Nursing Documentation Reviewed: Yes Vital Signs Reviewed: Yes - Physical Exam Appears: Positive for: Non-toxic, No Acute Distress Head Exam: Positive for: ATRAUMATIC, NORMAL INSPECTION, NORMOCEPHALIC Skin: Positive for: Normal Color, Warm, DRY Eye Exam: Positive for: EOMI, Normal appearance, PERRL ENT: Positive for: Normal ENT Inspection Neck: Positive for: Normal, Painless ROM Cardiovascular/Chest: Positive for: Regular Rate, Rhythm Respiratory: Positive for: CNT, Normal Breath Sounds Gastrointestinal/Abdominal: Positive for: Normal Exam, Soft. Negative for: Tenderness Back: Positive for: Normal Inspection. Negative for: L CVA Tenderness, R CVA Tenderness Extremity: Positive for: Normal ROM. Negative for: Tenderness Neurologic/Psych: Positive for: Alert, Oriented. Negative for: Motor/Sensory Deficits - ECG O2 Sat by Pulse Oximetry: 97 Pulse Ox Interpretation: Normal - Progress ED Course And Treament: 1722: Stable. AAOx3. Multiple visits to the ER. Not suicidal or homicidal. Is homeless looking to get a jail admit. Disposition - Clinical Impression Clinical Impression: Homelessness - Disposition Referrals: [facility] [Outside] - 06/06/18 Disposition Time: 17:00 Condition: STABLE Additional Instructions: Return if not better in 3 days. Instructions: Deciding Where to Go for Care Forms: [employer] (Azeri)
[2018-06-05 16:33] VITALS: PULSE 94
== END 2018-06-05 17:21 | disposition home or self-care (01) ==
LOC: H.ER 16:07
DX: Z59.0 Homelessness (principal)

== ENCOUNTER 2018-06-06 08:05 | Emergency (ER) | payer MEDICAID ==
[2018-06-06 08:05] VITALS: BMI 21.7
[2018-06-06 08:10] VITALS: O2SAT 100
--- NOTE | 2018-06-06 08:57 | ED PDOC ---
HPI: General Adult Time Seen by Provider: 06/06/18 08:08 Chief Complaint (Nursing): Trauma Chief Complaint (Provider): generalized weakness History Per: Patient History/Exam Limitations: no limitations Onset/Duration Of Symptoms: Hrs (today) Additional Complaint(s): Jose Albarado is a 62 year old male, with a past medical history of HTN, who presents to the emergency department requesting chcf placement. Patient is non domicile and has been seen in the ED multiple times this month. Patient is eating a sandwich in the room. He denies any syncope, fever or chills. No further medical complaints. PMD: None provided. Past Medical History Reviewed: Historical Data, Nursing Documentation, Vital Signs Vital Signs: Last Vital Signs Temp 97.8 F 06/06/18 08:09 Pulse 91 H 06/06/18 08:09 Resp BP 133/88 06/06/18 08:09 Pulse Ox 100 06/06/18 08:09 - Medical History PMH: Back Problems, Benign Prostatic Hyperplasia, HTN, Hyperlipidemia, TIA, Chronic Pain (Leg swelling secondary to herniated disk in his lumbar spine) - Surgical History Surgical History: Back Surgery - Family History Family History: States: Hypertension - Social History Alcohol: Social Drugs: Denies - Home Medications Home Medications: Ambulatory Orders Medication Instructions Recorded Amoxicillin/Clavulanate [Augmentin 1 tab PO BID #14 tab 06/02/18 875 MG-125 MG] Azithromycin [Zithromax] 250 mg PO DAILY #6 tab 06/04/18 - Allergies Allergies/Adverse Reactions: Allergies Allergy/AdvReac Type Severity Reaction Status Date / Time No Known Allergies Allergy Verified 06/05/18 16:17 Review of Systems ROS Statement: Except As Marked, All Systems Reviewed And Found Negative Constitutional: Negative for: Fever, Chills Physical Exam - Reviewed Nursing Documentation Reviewed: Yes Vital Signs Reviewed: Yes - Physical Exam Appears: Positive for: No Acute Distress (eating sandwich on exam) Head Exam: Positive for: ATRAUMATIC, NORMOCEPHALIC Skin: Positive for: Normal Color, Warm, Dry Eye Exam: Positive for: Normal appearance, EOMI, PERRL Neck: Positive for: Painless ROM Cardiovascular/Chest: Positive for: Regular Rate, Rhythm. Negative for: Murmur Respiratory: Positive for: Normal Breath Sounds. Negative for: Respiratory Distress Back: Positive for: Normal Inspection. Negative for: L CVA Tenderness, R CVA Tenderness, Vertebral Tenderness Extremity: Positive for: Normal ROM (upper and lower extremities). Negative for: Deformity, Swelling Neurologic/Psych: Positive for: Alert, Oriented, Gait (steady) - ECG O2 Sat by Pulse Oximetry: 100 (RA) Pulse Ox Interpretation: Normal Medical Decision Making Medical Decision Making: Time: 08:08 Initial Impression: Generalized weakness Initial Plan: --EKG --Reevaluation EKG: Normal Sinus @ 90bpm, remains unchanged from 06/04/18 ----- Scribe Attestation: Documented by Toney Lopez, acting as a scribe for Shanita Murray MD. Provider Scribe Attestation: All medical record entries made by the Scribe were at my direction and personally dictated by me. I have reviewed the chart and agree that the record accurately reflects my personal performance of the history, physical exam, medical decision making, and the department course for this patient. I have also personally directed, reviewed, and agree with the discharge instructions and disposition. Disposition - Clinical Impression Clinical Impression: Episode of generalized weakness - Disposition Referrals: [facility] [Outside] Condition: GOOD Instructions: Generalized Weakness Forms: [employer] (Korean)
[2018-06-06 09:48] VITALS: BP 130/81; PULSE 88; RESP 16; TEMP 97.2
--- NOTE | 2018-06-06 14:34 | CARD ---
APPROVED REPORT Date of service: 06/06/2018 EKG Measurement Heart [id number] <Conclusion> Normal sinus rhythm Possible Left atrial enlargement Cannot rule out Anterior infarct, age undetermined Abnormal ECG
== END 2018-06-06 09:49 | disposition home or self-care (01) ==
LOC: H.ER 08:05
DX: M62.81 Muscle weakness (generalized) (principal); I10 Essential (primary) hypertension

== ENCOUNTER 2018-06-08 11:00 | Emergency (ER) | payer MEDICAID ==
[2018-06-08 11:00] VITALS: BMI 21.7
[2018-06-08 11:10] VITALS: BP 136/78; PULSE 82; RESP 16; TEMP 98.2; O2SAT 100
--- NOTE | 2018-06-08 11:23 | ED PDOC ---
HPI: General Adult Time Seen by Provider: 06/08/18 11:13 Chief Complaint (Provider): Homelesss History Per: Patient History/Exam Limitations: no limitations Onset/Duration Of Symptoms: Days (today) Additional Complaint(s): Pt. was found sleeping on the ground so EMS called. Pt. denies any pain, weakness, headaches, dizziness, abd pain. No fall. No neck or head injury. Is asking for food. Not suicidal or homicidal. Past Medical History Reviewed: Nursing Documentation, Vital Signs Vital Signs: Last Vital Signs Temp 98.2 F 06/08/18 11:09 Pulse 82 06/08/18 11:09 Resp 16 06/08/18 11:09 BP 136/78 06/08/18 11:09 Pulse Ox 100 06/08/18 11:09 - Medical History PMH: Back Problems, Benign Prostatic Hyperplasia, HTN, Hyperlipidemia, TIA, Chronic Pain (Leg swelling secondary to herniated disk in his lumbar spine) - Surgical History Surgical History: Back Surgery - Family History Family History: States: Hypertension - Home Medications Home Medications: Ambulatory Orders Medication Instructions Recorded Amoxicillin/Clavulanate [Augmentin 1 tab PO BID #14 tab 06/02/18 875 MG-125 MG] Azithromycin [Zithromax] 250 mg PO DAILY #6 tab 06/04/18 - Allergies Allergies/Adverse Reactions: Allergies Allergy/AdvReac Type Severity Reaction Status Date / Time No Known Allergies Allergy Verified 06/05/18 16:17 Review of Systems ROS Statement: Except As Marked, All Systems Reviewed And Found Negative Physical Exam - Reviewed Nursing Documentation Reviewed: Yes Vital Signs Reviewed: Yes - Physical Exam Appears: Positive for: Well, Non-toxic, No Acute Distress Head Exam: Positive for: ATRAUMATIC, NORMAL INSPECTION, NORMOCEPHALIC Skin: Positive for: Normal Color, Warm, DRY Eye Exam: Positive for: EOMI, Normal appearance, PERRL ENT: Positive for: Normal ENT Inspection Neck: Positive for: Normal, Painless ROM Cardiovascular/Chest: Positive for: Regular Rate, Rhythm Respiratory: Positive for: CNT, Normal Breath Sounds Gastrointestinal/Abdominal: Positive for: Normal Exam, Soft Back: Positive for: Normal Inspection Extremity: Positive for: Normal ROM Neurologic/Psych: Positive for: Alert, Oriented - ECG O2 Sat by Pulse Oximetry: 100 Pulse Ox Interpretation: Normal - Progress ED Course And Treament: 1123: Stable. AAOx3. Pain free. Homeless. Seen multiple times for the same. Ambulated with no issues. Fu with clinic. Disposition - Clinical Impression Clinical Impression: Homelessness - Patient ED Disposition Is Patient to be Admitted: No Counseled Patient/Family Regarding: Diagnosis, Need For Followup - Disposition Disposition: Routine/Home Disposition Time: 11:24 Condition: STABLE Instructions: General (DC)
== END 2018-06-08 12:30 | disposition home or self-care (01) ==
LOC: H.ER 11:00
DX: Z59.0 Homelessness (principal)

== ENCOUNTER 2018-06-11 07:28 | Emergency (ER) | payer MEDICAID ==
[2018-06-11 07:29] VITALS: BMI 21.7
[2018-06-11 07:35] VITALS: TEMP 98.6
--- NOTE | 2018-06-11 08:25 | ED PDOC ---
HPI: General Adult Time Seen by Provider: 06/11/18 08:03 Chief Complaint (Nursing): Weakness/Neurological Deficit Chief Complaint (Provider): Weakness/Neurological Deficit History Per: Patient, EMS History/Exam Limitations: no limitations Current Symptoms Are (Timing): Still Present Additional Complaint(s): 62 year old male arrives to ED via EMS for an evaluation after he was found defecating in a park prior to arrival. Patient reports feeling lonely and sad but offers no other complaints. He states he may have suffered a stroke but cannot quantify or describe any focal weakness. PMD: none provided Past Medical History Reviewed: Historical Data, Nursing Documentation, Vital Signs Vital Signs: Last Vital Signs Temp 98.6 F 06/11/18 07:34 Pulse 101 H 06/11/18 07:34 Resp 17 06/11/18 07:34 BP 134/96 H 06/11/18 07:34 Pulse Ox 96 06/11/18 07:34 - Medical History PMH: Back Problems, Benign Prostatic Hyperplasia, HTN, Hyperlipidemia, TIA, Chronic Pain (Leg swelling secondary to herniated disk in his lumbar spine) - Surgical History Surgical History: Back Surgery - Family History Family History: States: Hypertension - Immunization History Hx Tetanus Toxoid Vaccination: No Hx Influenza Vaccination: No Hx Pneumococcal Vaccination: No - Home Medications Home Medications: Ambulatory Orders Medication Instructions Recorded Amoxicillin/Clavulanate [Augmentin 1 tab PO BID #14 tab 06/02/18 875 MG-125 MG] Azithromycin [Zithromax] 250 mg PO DAILY #6 tab 06/04/18 - Allergies Allergies/Adverse Reactions: Allergies Allergy/AdvReac Type Severity Reaction Status Date / Time No Known Allergies Allergy Verified 06/11/18 07:45 Review of Systems ROS Statement: Except As Marked, All Systems Reviewed And Found Negative Neurological: Negative for: Weakness (focal) Psych: Positive for: Depression Physical Exam - Reviewed Nursing Documentation Reviewed: Yes Vital Signs Reviewed: Yes - Physical Exam Appears: Positive for: Non-toxic, No Acute Distress Head Exam: Positive for: ATRAUMATIC, NORMAL INSPECTION, NORMOCEPHALIC Skin: Positive for: Normal Color Eye Exam: Positive for: Normal appearance ENT: Positive for: Normal ENT Inspection Neck: Positive for: Normal Cardiovascular/Chest: Positive for: Regular Rate, Rhythm, Chest Non Tender Respiratory: Positive for: Normal Breath Sounds. Negative for: Wheezing, Respiratory Distress Gastrointestinal/Abdominal: Positive for: Normal Exam, Soft. Negative for: Tenderness Extremity: Positive for: Normal ROM (upper/lower) Neurologic/Psych: Positive for: Alert (x3), rn stars II-XII (grossly intact), Oriented, Mood/Affect (flat), Gait (steady). Negative for: Motor/Sensory Deficits, Aphasia, Facial Droop - ECG O2 Sat by Pulse Oximetry: 96 (RA) Pulse Ox Interpretation: Normal Medical Decision Making Medical Decision Making: Time: 0810 Scribe Attestation: Documented by Blessing Jha, acting as a scribe for Akash Chisholm MD. Provider Scribe Attestation: All medical record entries made by the Scribe were at my direction and personally dictated by me. I have reviewed the chart and agree that the record accurately reflects my personal performance of the history, physical exam, medical decision making, and the department course for this patient. I have also personally directed, reviewed, and agree with the discharge instructions and disposition. Disposition - Clinical Impression Clinical Impression: Anxiety - Patient ED Disposition Is Patient to be Admitted: No Counseled Patient/Family Regarding: Diagnosis, Need For Followup - Disposition Referrals: [facility] [Outside] Disposition: Routine/Home Disposition Time: 10:43 Condition: FAIR Instructions: Anxiety, Adult (DC) Forms: [employer] ([place])
[2018-06-11 15:23] VITALS: BP 130/60; PULSE 84; RESP 15; O2SAT 99
== END 2018-06-11 12:35 | disposition home or self-care (01) ==
LOC: H.ER 07:28
DX: F41.9 Anxiety disorder, unspecified (principal); Z86.73 Personal history of transient ischemic attack (TIA), and cerebral infarction without residual deficits; G89.29 Other chronic pain; I10 Essential (primary) hypertension

== ENCOUNTER 2018-06-12 07:36 | Emergency (ER) | payer MEDICAID ==
[2018-06-12 07:37] VITALS: BMI 21.7
[2018-06-12 07:56] VITALS: RESP 18
--- NOTE | 2018-06-12 09:01 | ED PDOC ---
HPI: Altered Mental Status Time Seen by Provider: 06/12/18 08:35 Chief Complaint (Nursing): Weakness/Neurological Deficit Chief Complaint (Provider): Weakness/Neurological Deficit Past Medical History Vital Signs: Last Vital Signs Temp 97.5 F L 06/12/18 07:56 Pulse 90 06/12/18 07:56 Resp 18 06/12/18 07:56 BP 136/91 H 06/12/18 07:56 Pulse Ox 99 06/12/18 07:56 - Medical History PMH: Back Problems, Benign Prostatic Hyperplasia, HTN, Hyperlipidemia, TIA, Chronic Pain (Leg swelling secondary to herniated disk in his lumbar spine) - Surgical History Surgical History: Back Surgery - Family History Family History: States: Hypertension - Immunization History Hx Tetanus Toxoid Vaccination: No Hx Influenza Vaccination: No Hx Pneumococcal Vaccination: No - Home Medications Home Medications: Ambulatory Orders Medication Instructions Recorded Amoxicillin/Clavulanate [Augmentin 1 tab PO BID #14 tab 06/02/18 875 MG-125 MG] Azithromycin [Zithromax] 250 mg PO DAILY #6 tab 06/04/18 - Allergies Allergies/Adverse Reactions: Allergies Allergy/AdvReac Type Severity Reaction Status Date / Time No Known Allergies Allergy Verified 06/12/18 07:40 - ECG O2 Sat by Pulse Oximetry: 99 Disposition - Disposition
--- NOTE | 2018-06-12 09:07 | ED PDOC ---
HPI: General Adult Time Seen by Provider: 06/12/18 08:00 Chief Complaint (Nursing): Weakness/Neurological Deficit Chief Complaint (Provider): Weakness/Neurological Deficit History Per: Patient History/Exam Limitations: no limitations Additional Complaint(s): Patient is a 62 y/o male with history of homelessness and malingering who is well known to the ED presents today complaining of weakness. Patient has been seen at this ED everyday this week for the same complaint. Patient is exhibiting bed seeking behavior. He states he is waiting for a social worker palliative care. He has no medical complaints. Past Medical History Reviewed: Historical Data, Nursing Documentation, Vital Signs Vital Signs: Last Vital Signs Temp 97.5 F L 06/12/18 07:56 Pulse 90 06/12/18 07:56 Resp 18 06/12/18 07:56 BP 136/91 H 06/12/18 07:56 Pulse Ox 99 06/12/18 07:56 - Medical History PMH: Back Problems, Benign Prostatic Hyperplasia, HTN, Hyperlipidemia, TIA, Chronic Pain (Leg swelling secondary to herniated disk in his lumbar spine) - Surgical History Surgical History: Back Surgery - Family History Family History: States: Hypertension - Immunization History Hx Tetanus Toxoid Vaccination: No Hx Influenza Vaccination: No Hx Pneumococcal Vaccination: No - Home Medications Home Medications: Ambulatory Orders Medication Instructions Recorded RX: No Known Home Med 06/15/18 - Allergies Allergies/Adverse Reactions: Allergies Allergy/AdvReac Type Severity Reaction Status Date / Time No Known Allergies Allergy Verified 06/15/18 08:24 Review of Systems ROS Statement: Except As Marked, All Systems Reviewed And Found Negative Neurological: Positive for: Weakness Physical Exam - Reviewed Nursing Documentation Reviewed: Yes Vital Signs Reviewed: Yes - Physical Exam Appears: Positive for: Non-toxic, No Acute Distress Head Exam: Positive for: ATRAUMATIC, NORMAL INSPECTION, NORMOCEPHALIC Skin: Positive for: Normal Color, Warm, DRY Eye Exam: Positive for: EOMI, Normal appearance, PERRL Cardiovascular/Chest: Positive for: Regular Rate, Rhythm. Negative for: Murmur Respiratory: Positive for: Normal Breath Sounds. Negative for: Respiratory Distress Gastrointestinal/Abdominal: Positive for: Normal Exam, Soft. Negative for: Tenderness Extremity: Positive for: Normal ROM. Negative for: Pedal Edema, Deformity Neurologic/Psych: Positive for: Alert, Oriented. Negative for: Motor/Sensory Deficits - ECG O2 Sat by Pulse Oximetry: 99 (RA) Pulse Ox Interpretation: Normal Medical Decision Making Medical Decision Making: Time: 08:35 Initial Impression: Bed seeking behavior Initial Plan: --waiting for social work consult. Time: 08:35 --Patient is requesting social work consult. No medical complaints at this time. Time: 14:23 composition worker has referred patient to alf. Scribe Attestation: Documented by Jef Garland acting as a scribe for Lyle Monge MD Provider Scribe Attestation: All medical record entries made by the Scribe were at my direction and personally dictated by me. I have reviewed the chart and agree that the record accurately reflects my personal performance of the history, physical exam, medical decision making, and the department course for this patient. I have also personally directed, reviewed, and agree with the discharge instructions and disposition. Disposition - Clinical Impression Clinical Impression: Homelessness - Patient ED Disposition Is Patient to be Admitted: No Counseled Patient/Family Regarding: Studies Performed, Diagnosis, Need For Followup - Disposition Disposition: Routine/Home Disposition Time: 13:00 Condition: IMPROVED Additional Instructions: follow up with your primary doctor return to ED with any worsening or concerning symptoms Forms: [employer] (Citizen Of [place])
[2018-06-12 14:37] VITALS: BP 130/65; PULSE 84; TEMP 98.3
[2018-06-20 17:12] VITALS: O2SAT 99
== END 2018-06-12 14:33 | disposition home or self-care (01) ==
LOC: H.ER 07:36
DX: M62.81 Muscle weakness (generalized) (principal)